=== PATIENT | male | born 1945 | race Caucasian/White ===

== ENCOUNTER 2021-12-03 09:33 | Emergency (ER) | payer MEDICARE ==
[~2021-12-03] VITALS: Ht 162.6 cm; Wt 92.5 kg
[2021-12-03 09:39] VITALS: BP 140/67
--- NOTE | 2021-12-03 09:46 | NUR ---
PT AMBULATED TO BED 03.
--- NOTE | 2021-12-03 09:50 | NUR ---
76 y/o male ambulated to bed 3, pt placed in gown and on vss monitor, c/o cp sharp sensation radiates to left shoulder and left arm that started yesterday. denies n/v/d, sob, cough, sore throat, chills, fevers. yesterday pain was worse with movement/exertion. pain comes and goes. pmh: dm2, htn med: vitamin d, metformin, furosemide, amlodipine, losartan allergy: barbital
[2021-12-03] MEDS: ASPIRIN 325 MG TAB PO ONE (10:27)
--- NOTE | 2021-12-03 10:49 | NUR ---
walked blood work down to lab
--- NOTE | 2021-12-03 10:51 | NUR ---
xr at bedside for portable cxr
[2021-12-03 11:04] LABS: BASOPHILS # (AUTO) 0.1 K/uL (0.00-0.22); EOSINOPHILS # (AUTO) 0.2 K/uL (0-0.4); EOSINOPHILS % (AUTO) 3.3 % (0.0-4.0); HEMATOCRIT 36.6 % (36-52); HEMOGLOBIN 12.2 g/dL (12.0-18.0); LYMPHOCYTES % (AUTO) 16.8 % (20.5-51.1); MEAN CORPUSCULAR HEMOGLOBIN 29 pg (27-31); MEAN CORPUSCULAR HGB CONC 33 g/dL (33-37); MEAN CORPUSCULAR VOLUME 87.9 fL (80-94); MONOCYTES # (AUTO) 0.6 K/uL (0.8-1.0); MONOCYTES % (AUTO) 10.1 % (1.7-9.3); NEUTROPHILS % (AUTO) 68.8 % (42.2-75.2); PLATELET COUNT (AUTO) 161 K/uL (140-450); RED BLOOD CELL COUNT(AUTO) 4.17 MIL/uL (4.20-6.10); WHITE BLOOD COUNT (AUTO) 5.9 K/uL (4.8-10.8)
[2021-12-03 11:35] LABS: ALBUMIN 3.9 g/dL (3.4-5.0); ANION GAP 12.1 (8-16); ASPARTATE AMINOTRANSFERASE 20 U/L (15-37); CHLORIDE 103 mmol/L (98-107); CREATININE 0.8 mg/dL (0.6-1.3); GLUCOSE 94 mg/dL (74-106); LIPASE 84 U/L (73-393); POTASSIUM 4.1 mmol/L (3.5-5.1); SODIUM SERUM 138 mmol/L (136-145); TOTAL BILIRUBIN 0.6 mg/dL (0.0-1.0); UREA NITROGEN, BLOOD 18 mg/dL (7-18)
[2021-12-03 12:45] VITALS: BP 114/52
--- NOTE | 2021-12-03 12:45 | NUR ---
Patient discharged with v/s stable. Written and verbal after care instructions given and explained. Patient verbalized understanding. Ambulatory with steady gait. All questions addressed prior to discharge. Advised to follow up with PMD.
--- NOTE | 2021-12-03 12:45 | NUR ---
Patient does not wish to proceed with medical care recommended by Dr Fry. Patient given information related to possible complications, up to and including , which could occur as a result of leaving hospital at this time. Patient verbalizes understanding of risks involved leaving against medical advice. Patient has signed AMA form.
== END 2021-12-03 12:45 | disposition left against medical advice (07) ==
LOC: MED 09:33
DX: R07.9 Chest pain, unspecified (principal); E11.9 Type 2 diabetes mellitus without complications; I10 Essential (primary) hypertension; Z88.8 Allergy status to other drugs, medicaments and biological substances
CPT/HCPCS: 36415; 71045; 80053; 83690; 84484; 85025; 93005; 99285; Q0092